=== PATIENT | male | born 2000 | race Caucasian/White ===

== ENCOUNTER 2020-07-13 11:49 | Outpatient (REF) | payer BC, SELFPAY | END 2020-07-13 11:50 | disposition home or self-care (01) | LOC: HO.WFDLDS 11:49 | PROVIDERS: Visit Provider Internal Medicine | DX: Z20.828 Contact with and (suspected) exposure to other viral communicable diseases (principal) | CPT/HCPCS: C9803; U0003 ==

== ENCOUNTER 2020-08-30 08:40 | Outpatient (REF) | payer BC, SELFPAY | END 2020-08-30 08:41 | disposition home or self-care (01) | LOC: HO.WFDLDS 08:40 | PROVIDERS: Visit Provider Internal Medicine | DX: Z20.828 Contact with and (suspected) exposure to other viral communicable diseases (principal) | CPT/HCPCS: C9803; U0003 ==

== ENCOUNTER 2020-10-09 12:14 | Outpatient (REF) | payer BC, SELFPAY | END 2020-10-09 12:15 | disposition home or self-care (01) | LOC: HO.WFDLDS 12:14 | PROVIDERS: PCP Pediatrics; Visit Provider Internal Medicine | DX: Z20.822 Contact with and (suspected) exposure to COVID-19 (principal) | CPT/HCPCS: 36415; C9803; U0003; U0005 ==